=== PATIENT | female | born 1955 | race Caucasian/White ===

== ENCOUNTER → 2016-10-11 | Outpatient (CLI) | payer OTHER ==
[~2016-10-11] MED LIST: ALEVE220 M1 PO; CALCIUM + D 6001 TA1 PO; FLEXERIL10 MG PO; FLUOXETINE HCL40 M1 PO; FLUTICASONE PRO16 GM; FOSAMAX70 MG PO; LISINOPRIL-HCTZ1 T14 PO; MELATONIN5 M1 PO; NEURONTIN800 MG PO; PERCOCET 5-3251 TAB PO; PERCOCET 5/321 UDTAB PO; PRAVASTATIN SOD40 MG PO; SPIRIVA RESPIMAT4 G1 INH; SYMBICORT 80-10.2 GM IN
--- NOTE | ~2016-10-11 | MR164 ---
[facility] A Service of [facility] & [facility] RADIOLOGY TEXT RESULTS PATIENT: VIRGINIE DANIELS LOCATION: [facility] : 57 UNIT #: [id number] AGE: [address]: Alen Cruz MD SEX: F ORDER DR: [id number] [facility] [address] [place], [place] [address] [id number] O MR#: [id number] Acc #: [id number] NAME: VIRGINIE DANIELS : 1955 SEX: F STUDY DATE/TIME: 10/11/2016 19:13 UNIT: [facility] ROOM: STUDY DESCRIPTION: MR Shoulder Wo Contrast Lt Attending Physician: Alen Cruz M.D. Referring Physician: Alen Cruz M.D. Ordering Physician: Alen Cruz M.D. Primary Care Physician: [facility] REPORT This report is preliminary unless electronic signature is present. EXAM MRI of the left shoulder 10/11/2016 COMPARISON Bilateral shoulder radiographs 08/21/2016. HISTORY Order states left shoulder pain, history of prior rotator cuff repair. 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 [place] a pop in physical therapy 1 week ago. Left rotator cuff surgery 2 years ago. History of cervical cancer and B-cell lymphoma. FINDINGS There is evidence of prior subacromial decompression with apparent distal clavicle resection and acromioplasty. Coracoclavicular ligament complex is intact. Coracoacromial ligament does not appear continuous and was probably released. There is evidence of previous rotator cuff repair with numerous suture anchors in the greater tuberosity in its anterior half to two-thirds. There is a recurrent full-thickness full-width supraspinatus tendon tear with the attenuated tendon retracted over the medial third of the humeral head. The infraspinatus tendon is severely attenuated with the appearance most suggestive of supraspinatus tear extension into the articular side of the infraspinatus without full-thickness infraspinatus tear. Supraspinatus and infraspinatus tendons demonstrate very minimal atrophy. The teres minor muscle tendon complex is normal. Subscapularis tendon is attenuated but intact. There is 1 suture anchor in the region of the subscapularis lesser trochanteric insertion possibly related to prior subscapularis repair. [facility]. [facility] A Service of [facility] & [facility] RADIOLOGY TEXT RESULTS PATIENT: VIRGINIE DANIELS [facility] UNIT #: [id number] AGE: [address]: Alen Cruz MD SEX: F ORDER DR: Subscapularis demonstrates minimal atrophy in its superior half. There is nonvisualization of the long head biceps tendon compatible with complete tear/detachment. Glenoid labrum is unremarkable. Glenohumeral joint demonstrates a mild effusion and possible subtle synovitis. There is equivocal cartilage attenuation of the superior humeral head. No marrow lesion, fracture, or loose body is noted. There is mild fluid in the subacromial - subdeltoid bursa. IMPRESSION 1. Recurrent full-thickness full-width supraspinatus retracted tendon tear extends into the articular side of the infraspinatus tendon which is significantly attenuated but not detached. 2. Subscapularis tendon attenuation with possible prior subscapularis anchor repair without recurrent tear. 3. Mild secondary subacromial - subdeltoid bursitis. 4. Chronic - appearing subacromial decompression. 5. Small glenohumeral effusion, possible mild synovitis, and possible cartilage attenuation of the superior humeral head. Dictated by... Alondra Falcon M.D. THIS IS AN ELECTRONICALLY VERIFIED REPORT Alondra Falcon M.D. at 10/12/2016 1:43 PM NIGHAT/les TD: 10/12/2016 12:24 JOB #: [id number] [facility] REPORT Page 1 of 1 COPY
== END | disposition home or self-care (01) ==
LOC: CMRI 18:25
DX: M25.512 Pain in left shoulder (principal); S46.812A Strain of other muscles, fascia and tendons at shoulder and upper arm level, left arm, initial encounter; M75.52 Bursitis of left shoulder; M25.412 Effusion, left shoulder
CPT/HCPCS: 73221